=== PATIENT | female | born 1965 | race African-American/Black ===

== ENCOUNTER 2017-08-21 07:15 | Day surgery (SDC) | payer MEDICARE ==
--- NOTE | ~2017-08-21 | OP ---
PATIENT NAME: DOC DELACRUZ MEDICAL RECORD: [id number] :65 LOCATION:[facility] ADMISSION DATE: SURGEON: LINDA ELLIS MD DATE OF OPERATION: 08/21/2017 REFERRING PHYSICIAN: Dr. Strauss in [place] PREOPERATIVE DIAGNOSIS: Other complication of left arm dialysis AV graft with difficult access. POSTOPERATIVE DIAGNOSIS: Other complication of left arm dialysis AV graft with difficult access. OPERATION PERFORMED: Open revision of left arm AV graft without thrombectomy. SURGEON: Linda Ellis MD ANESTHESIA: General with LMA per FOURDRINIER OPERATOR. PREOPERATIVE NOTE: Ms. Delacruz is a 51-year-old female with a left upper arm brachial axillary AV graft. The graft is functioning well, but it is deep and difficult to access. I had advised the patient that she should undergo a revisionary operation to place a new jump graft in a more superficial or immediately subcutaneous location. She has agreed and reports to the hospital as an outpatient for that procedure today. She dialyzes in [place] on Tuesdays, , Saturdays. She is diabetic and her blood sugar was in the 300s. Preoperative she was given IV insulin per anesthesia. DESCRIPTION OF PROCEDURE: Under general anesthesia with an LMA per FOURDRINIER OPERATOR, the patient was placed in supine position. The left arm prepped and draped in sterile manner. I examined her arm with ultrasound and identified the sites for 2 incisions over the venous outflow and close to the arterial anastomosis. The incisions were deepened with electrocautery dissection and the old graft exposed. It was noted to be actually functioning well with good palpable thrills and pulsation. The graft was occluded at the juxta arterial segment and close to the venous outflow with atraumatic vascular clamps. The graft was transected. I chose a new 6 mm diameter straight Acuseal PTFE graft and anastomosed one end-to-end to the arterial juxta anastomotic segment. This was done with running 6-0 Prolene, after which the suture line was sealed with BioGlue and the graft then aspirated, free return of blood with the arterial pulsation noted. It was then flushed with heparinized saline and clamped. I created a new very shallow subcutaneous tunnel, which passed anteriorly and lateral and outside of the old rainbow shaped PTFE graft. It was brought back up into the proximal incision where it was shortened and again flushed with heparinized saline and another end-to-end anastomosis was done with running 6-0 Prolene and the suture lines sealed with BioGlue. The clamps were removed and excellent flow immediately established in the new graft. The wounds were irrigated with gentamicin solution. The patient was given vancomycin as a prophylactic antibiotic preop due to her history of BETA-LACTAM PENICILLIN allergy. The wounds were closed with interrupted inverted 3-0 Vicryl and running intracuticular 4-0 Monocryl and Dermabond glue. They were each dressed with OPERATIVE REPORT [id number] DOC DELACRUZ Maxorb Ag, Tegaderm, and Cavilon skin prep and both wounds were also infiltrated with 0.25% Marcaine without epinephrine prior to closure. The patient was awakened and taken to the recovery room in stable condition where she was noted to have an excellent audible bruit and palpable thrill over her new graft. PLAN: The patient will resume her usual medications and diabetic renal diet. Today, she will be discharged to home to continue her routine dialysis schedule, which means she should present for dialysis tomorrow. The [facility] dialysis unit in [place] will be instructed to follow strict Acuseal protocol for 2 weeks. That involves the nurse wearing a mask and sterile gloves when doing the access, no larger than 17-gauge needles should be used for 2 weeks, and flow during dialysis is to be limited at 400 cc per minute. After 2 weeks, they can resume fully normal technique. She will be discharged to home today and I will make an appointment for her to come back to see me in my office week after next and she is given a prescription for 10 tablets of hydrocodone with acetaminophen 5/325, she can take 1 p.o. q.4 hours p.r.n. pain. Blood loss during the operation was about 5 cc, none was replaced. All sponges, instruments and needles were accounted for. No drain was used and no surgical specimen was submitted for histopathology. TRANSINT:[id number] Voice Confirmation ID: [id number] DOCUMENT ID: [id number] CC: Dr. Suha Strauss LINDA ELLIS MD at 1453 CC: DR. SUHA STRAUSS [id number] DICTATION DATE: 08/21/17 1149 PLASTIC MAKER: 08/21/17 1257 [facility] 08/21/17 [facility] [address] [place] [address]
[2017-08-21] MEDS ORDERED: NEURONTIN 300300 MG PO (07:31)
[2017-08-21] MEDS ORDERED: COREG12.5 MG PO (07:31)
[2017-08-21] MEDS ORDERED: LASIX80 MG PO (07:31)
[2017-08-21] MEDS ORDERED: PROTONIX40 MG PO (07:32)
[2017-08-21 07:33] LABS: BASOPHILS 0.3 % (0-2); EOSINOPHILS 2.9 % (0-7); HEMATOCRIT 36.2 % (36.0-48.0); HEMOGLOBIN 12.2 g/dL (12-16); IMMATURE GRANULOCYTES 0.1 % (0-5); MCH 30.4 pg (26.0-34.0); MCHC 33.7 g/dL (31.0-37.0); MCV 90.3 fL (80.0-100.0); MEAN PLATELET VOLUME 9.3 fL (7.4-10.4); MONOCYTES 7.6 % (2-11); NEUTROPHILS 54.1 % (40-80); PLATELET COUNT 250 10x3/uL (130-400); RBC 4.01 10x6/uL (4.00-5.40); RDW 13.7 % (11.5-14.5); WBC 7.6 10x3/uL (4.8-10.8)
[2017-08-21] MEDS ORDERED: HUMULIN R100 U/ML SC (07:34)
[2017-08-21] MEDS ORDERED: PRILOSEC10 M1 (07:35)
[2017-08-21] MEDS ORDERED: LIPITOR40 MG PO (07:35)
[2017-08-21] MEDS ORDERED: COZAAR100 MG PO (07:36)
[2017-08-21] MEDS ORDERED: NITROQUICK0.4 MG SL (07:37)
[2017-08-21] MEDS ORDERED: FERRIC CITRATE210 MG PO (07:39)
[2017-08-21 07:42] VITALS: BP 144/74; BMI 31.3
[2017-08-21 07:44] LABS: ANION GAP 17.3 mmol/L (8-16); CALCIUM 9.8 mg/dL (8.5-10.1); CARBON DIOXIDE 22.4 mmol/L (21.0-32.0); POTASSIUM - SERUM 4.7 mmol/L (3.5-5.1)
[2017-08-21 07:52] LABS: INR 0.93 (0.85-1.17); PROTIME 12.1 SECONDS (11.6-15.0)
[2017-08-21 07:53] LABS: APTT 25.6 SECONDS (22.8-39.4)
[2017-08-21 08:32] LABS: HCG URINE NEGATIVE (NEGATIVE)
[2017-08-21] MEDS ORDERED: HYDROCODON-ACE1 EAC7 PO (11:30)
== END 2017-08-21 13:20 | disposition home or self-care (01) ==
LOC: D.OPS 07:15
PROVIDERS: Internal Medicine Nephrology
DX: T82.9XXA Unspecified complication of cardiac and vascular prosthetic device, implant and graft, initial encounter (principal); E11.22 Type 2 diabetes mellitus with diabetic chronic kidney disease; I12.0 Hypertensive chronic kidney disease with stage 5 chronic kidney disease or end stage renal disease; N18.6 End stage renal disease; Z99.2 Dependence on renal dialysis; K21.9 Gastro-esophageal reflux disease without esophagitis; Z01.812 Encounter for preprocedural laboratory examination

== ENCOUNTER 2017-09-26 12:06 | Inpatient (IN) | payer MEDICARE ==
[~2017-09-26] VITALS: Ht 162.6 cm; Wt 78.0 kg
--- NOTE | ~2017-09-26 | OP ---
PATIENT NAME: DOC DELACRUZ MEDICAL RECORD: [id number] :65 LOCATION:D.M2 D.2131 ADMISSION DATE:09/26/17 SURGEON: LINDA ELLIS MD DATE OF OPERATION: 10/02/2017 REFERRING PHYSICIANS: 1. Romel De La Cruz MD, [facility] 2. 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 OPERATIONS PERFORMED: Left upper extremity dialysis circuit angiogram with balloon angioplasty of arterial anastomotic stenosis, angioplasty and stenting of axillary vein stenosis about 4 cm proximal to the proximal end of a stent placed earlier this week, also selective left brachial artery catheterization and arteriogram, and also separately insertion of a 19-cm HemoSplit catheter via the right internal jugular vein under fluoroscopy. SURGEON: Linda Ellis MD ANESTHESIA: General per GAMMA FACILITIES OPERATOR. PREOP NOTE: Ms. Delacruz is a very nice 51-year-old -[place] female from [place], who is on chronic hemodialysis. She had dialyzed for sometime with a left upper arm brachial axillary AV graft. It was very difficult to access because it was too deep to be able to palpate and cannulate reliably. I operated her a couple of weeks ago and implanted an Acuseal jump graft using the old graft arterial and venous anastomoses and placed the Acuseal graft in a very superficial location. It was not long after that that the graft thrombosed, and on Thursday last, in the operating room, I performed a fistulogram with AngioJet thrombolysis and angioplasty with initially good results but prompt re-thrombosis. She was returned to the operating room on Thursday of this week and had basically the same operation performed, although there was persistent stenosis within the axillary vein at the venous anastomosis and I did stent that with a Viabahn stent. I found no other pathology and she thrombosed again immediately upon arriving in the recovery room. She is returned to the operating room now on Thursday with plans to do this one more time with more aggressive anticoagulation. She has been seen in consultation by hematology, but there has been no determination of her exact thrombophilic defect. She actually thrombosed her graft during a period of GI illness with nausea, vomiting, diarrhea, and some fever and that may have, perhaps along with dehydration, contributed to her becoming thrombophilic. At any rate, she is back in the OR to give it another try today. Also, she has a Trialysis catheter, which I placed via the right internal jugular vein on Thursday, and I am going to remove it and implant a tunneled dialysis catheter so that, regardless of the outcome as far as her fistula salvage is concerned today, she should be able to go home. Under anesthesia in supine position, the patient was prepped and draped in sterile manner. The right internal jugular Trialysis catheter was removed over a guidewire and the insertion site enlarged as a transverse incision at the base OPERATIVE REPORT [id number] DOC DELACRUZ of the neck there on the right. I passed a dilator peel-away sheath over the wire and then chose an entry site for the new catheter beneath the clavicle. I made a stab incision there and passed the new catheter through a subcutaneous tunnel up to the cervical wound where it was then inserted through the sheath and the peel-away sheath removed. The catheter came to final position deep in the right atrium. It was accessed and aspirated. Free return of blood from each lumen confirmed. It was then flushed with saline and Hep-Lock solution, clamped, and capped. The catheter was sutured to the skin near the entry site with 2-0 Prolene and a standard central venous line dressing applied, which included chlorhexidine-containing disc at the skin site. The cervical incision was closed with interrupted inverted 3-0 Vicryl and Dermabond glue. It was dressed with Maxorb Ag, Tegaderm, and Cavilon skin prep. We then turned attention to the left arm. The graft was accessed with ultrasound guidance and micropuncture technique in 2 directions, antegrade and retrograde. An 8-Yoruba sheath was used distally and directed centrally, and a 6-Yoruba sheath was used proximally and directed towards the arterial anastomosis. I lysed thrombus within the graft with an AngioJet catheter over a 0.035 angled Glidewire, and at the same time, the patient was given 5000 units of heparin systemically. I found a persistent area of tenacious organized thrombus in the axillary vein just proximal to the proximal end of the stent I placed last time. This was not adequately treated with the AngioJet and I did perform angioplasty and dilated the axillary vein stenosis, and on repeat contrast injection, there was elastic recoil and the problem persisted. I subsequently treated this with an overlapping Viabahn stent. Due to inventory, I had to use an 8-mm diameter x 15-cm Viabahn stent. Completion angiography demonstrated new thrombus forming within the stent and within the body of the graft. Additional heparin was given. Initially a dose of extra 2000 units and later another 3000 units of heparin was given during the procedure, which lasted about 2-1/2 hours. The brachial artery was selectively catheterized by passing a guidewire and glide catheter across the arterial anastomosis and advancing proximally into the proximal brachial artery. Contrast injection revealed no evidence of emboli, stenoses, or occlusion within the brachial artery or its branches. There was a narrowing at the arterial anastomosis, which I think was probably tenacious thrombus. This was not satisfactorily removed with an AngioJet catheter and Irina embolectomy catheter and subsequently I dilated the arterial anastomosis with a 6-mm diameter balloon. Repeated contrast injections from the brachial artery catheter demonstrated dramatic improvement there, but still very sluggish flow with residual thrombus or new thrombus forming within the graft. The entire graft was then treated several times with repeated angioplasty balloon inflations to macerate clot, which was aspirated as much as possible and the graft flushed frequently with heparinized saline. Eventually, we got good result. The patient's insertion sites were closed with [id number] 4-0 Prolene as the sheaths were removed. All the puncture sites from today's procedure and the last couple of procedures were dressed with Avitene Ultrafoam, Tegaderm, and Cavilon skin prep. When the patient reached the recovery room, her graft had a very good satisfying multiphasic continuous pulsatile Doppler signal and a low-pitched rumble on auscultation. I am giving the patient her first dose of Eliquis today and I believe that she can be discharged today or tomorrow on Eliquis 2.5 mg b.i.d. if she has insurance coverage to purchase the medication. Hopefully she will as I think this will be much more effective and better for her than trying to get her on OPERATIVE REPORT [id number] DOC DELACRUZ Coumadin and keeping her in the hospital any longer to regulate her anticoagulation. I think that she should go back to her [facility] in [place], where they should continue dialyzing her if possible with her left arm AV graft though using Acuseal protocol for 2 more weeks. At some point after that, if her graft is functioning well without complications, then she should be referred back to [facility] for a followup angiogram and then, if possible, also removal of her tunneled dialysis catheter on the same day. Blood loss during the operation was about 50 cc. None was replaced intraoperatively. All sponges, instruments, and needles were accounted for. No drain was used. TRANSINT:[id number] Voice Confirmation ID: [id number] DOCUMENT ID: [id number] LINDA ELLIS MD at 2012 CC: CONCETTA GIVENS MD [id number] DICTATION DATE: 10/02/17 1415 TOP LIFT AND AUTOMATIC WINDOW REPAIRER: 10/02/17 1546 [facility] 10/03/17 [facility] [address] [place] [address]
--- NOTE | ~2017-09-26 | OP ---
PATIENT NAME: DOC DELACRUZ MEDICAL RECORD: [id number] :65 LOCATION:D.M2 D.2131 ADMISSION DATE:09/26/17 SURGEON: LINDA ELLIS MD DATE OF OPERATION: 09/27/2017 REFERRED BY: Dr. Concetta Givens and Dr. Strauss of [place]. PREOPERATIVE DIAGNOSIS: Acute thrombosis of left upper extremity AV graft revised last about 30 days ago. POSTOPERATIVE DIAGNOSIS: Thrombosed AV graft secondary to approximate 70% venous anastomotic stenosis. OPERATION PERFORMED: Percutaneous fistulogram with ultrasound-guided micropuncture access times 2 and AngioJet mechanical thrombolysis and balloon angioplasty of venous anastomotic stenosis and selective placement of wire and catheter in the proximal brachial artery via the AV graft arterial anastomosis and performance of a selective brachial artery arteriogram. SURGEON: Linda Ellis MD ANESTHESIA: General by LMA per HORSE RACER. PREOPERATIVE NOTE: Ms. Delacruz is a very pleasant 51-year-old -[place] female from [place] who is on dialysis there. Her business planning analyst is Dr. Strauss in [place]. Ms. Delacruz has had an AV graft in her left arm, which was too deep and difficult to access. This was done, I believe, in [place]. I recently revised this about 08/21/2017 and interposed an Acuseal jump graft between the arterial and venous limbs and placed this jump graft in a much more superficial and further lateral position for ease of access. Since that time, the graft has been accessed with Acuseal protocol and the graft has remained patent and the patient has done well. I saw her in my office last on 09/03/2017, at which time she reported there was no difficulty in accessing her graft and that everything was working well. She apparently became ill earlier this week with nausea, vomiting, subjective fever, and diarrhea that has continued through and including today. She dialyzed on Thursday of last week and on that day she says she had a CT scan of the abdomen there in [place] though I do not have any record of the result. She presented for dialysis on and was found to have occlusion of her graft or thrombosis. I do not know exactly what her status was on Thursday and Thursday, but on Thursday she was referred to Dr. Givens and he admitted her to the hospital here Thursday that was yesterday. Her graft is thrombosed and she has no access, so she is to go to the operating room today for hopefully salvage of her AV graft and possibly a dialysis catheter. Under general anesthesia via LMA per HORSE RACER, the patient being fully n.p.o. past midnight, she was given vancomycin as a prophylactic antibiotic due to her history of PENICILLIN allergy and the left arm was prepped and draped in a sterile manner. I accessed the arterial limb of the graft using ultrasound guidance and micropuncture technique. I inserted a 6-Korean introducer sheath directed proximally and then introduced a 0.035 angled Glidewire and over that an AngioJet catheter. I lysed thrombus from the axillary vein through the venous anastomosis and through the body of the graft. The patient was given 5000 units of heparin systemically. Contrast injection demonstrated residual thrombus or stenosis in the venous anastomosis. I saw no other stenoses in the OPERATIVE REPORT [id number] DCO DELACRUZ graft otherwise. I dilated this segment with a 7-mm diameter Reef angioplasty balloon to full effacement. I estimate this stenosis at about 70%. The balloon reached full effacement at 10 atmospheres and was held fully inflated for 30 seconds. Repeat contrast injection revealed resolution of the stenosis and good flow of contrast into the axillary vein. A second micropuncture was done towards the venous end of the graft and another 6-Korean introducer placed. This was directed peripherally and thrombus within the body of the graft and arterial anastomosis was removed with the AngioJet, but note pulsatile arterial inflow had already spontaneously returned at that point. I passed the guidewire distally and across the arterial anastomosis and proximally up to the proximal brachial artery and then over that placed a glide catheter and performed a selective brachial artery arteriogram. This revealed no evidence of any significant stenoses or aneurysms. No evidence of emboli and the arterial anastomosis to the graft appeared to be wide open. There was good flow in the graft at that point. At this point, we terminated the procedure. I did not reverse her heparin. The hardware was removed and hemostasis obtained at the puncture sites with [id number] 4-0 Prolene sutures and a brief period of direct pressure. Recall this is an Acuseal graft, at least where it was accessed. Doppler examination revealed good flow in the graft, although the Doppler did not penetrate many sites along the course of the graft. This is being due to it being an Acuseal and also to its relatively short period of time for tissue ingrowth to occur. Dressings of Maxorb and Tegaderm with Cavilon skin prep were applied and the patient awakened and taken to the Recovery Room. The patient had not been hypotensive during the procedure. Blood loss was estimated about 5 cc. When the patient reached the recovery room, it was noted that there was no bruit audible over the graft and on my Doppler examination, there was no Doppler pulsatile continuous flow in the graft. At this point, I elected to go ahead and insert a temporary dialysis catheter. There in the recovery room in bed with TIVA and monitoring per HORSE RACER, the patient's right neck was prepped and draped in a sterile manner. Ultrasound was used to locate the right internal jugular vein. A small incision was made under local anesthesia there at the base of the neck and with continuous ultrasound guidance, a needle and guidewire were inserted into the right internal jugular vein. Dilators were passed over the wire and lastly, a 15 cm long Trialysis acute dialysis catheter was inserted. Blood returned from all 3 lumens. They were then flushed with saline and heparin locked, clamped, and capped. The catheter was sutured in place with a 2-0 Prolene and a sterile dressing applied. A chest x-ray was obtained there in the recovery room, which revealed satisfactory positioning of the catheter without apparent complication. I have communicated with Ms. Nilam Morales, nurse practitioner for nephrology home paraprofessional this weekend and the patient will be going to dialysis today. I think she probably will need to go on to dialysis tomorrow and then if possible, assuming her other problems are not taking precedence, then she can be returned to the OR on Thursday to have this procedure basically repeated with consideration of stenting the venous anastomosis if no other lesions or reasons for graft failure are found. TRANSINT:[id number] Voice Confirmation ID: [id number] DOCUMENT ID: [id number] OPERATIVE REPORT [id number] DOC DELACRUZ JAMES MD at 5142 CC: CONCETTA GIVENS MD and DR SUHA STRAUSS [phone] DICTATION DATE: 09/27/17 1137 COMMERCIAL LENDING VICE PRESIDENT: 09/27/17 1408 ADM IN [place] [id number] [place] [address]
--- NOTE | ~2017-09-26 | OP ---
PATIENT NAME: DOC DELACRUZ MEDICAL RECORD: [id number] :65 LOCATION:D.M2 D.2131 ADMISSION DATE:09/26/17 SURGEON: LINDA ELLIS MD DATE OF OPERATION: 09/29/2017 REFERRED BY: Dr. Concetta Givens and Dr. De La Cruz of [place]. 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 SURGEON: Linda Ellis MD ANESTHESIA: General by DIRECTOR OF CARDIOPULMONARY SERVICES with LMA. PREOPERATIVE NOTE: Ms. Delacruz is a very nice 51-year-old -[place] female from [place]. She has end-stage renal disease and is on chronic hemodialysis there. She had had very difficult to access left arm brachial axillary AV graft, which I recently revised putting in a new jump graft of Acuseal and placing it more lateral in the arm and a very superficially positioned. It is much easier to access now, but it has thrombosed last week and she was brought to the hospital on Thursday and on Thursday, I did a fistulogram with mechanical thrombolysis and angioplasty of the venous anastomotic stenosis and she immediately clotted off the access in the recovery room. A temporary catheter was placed for her to have dialysis on Thursday and then again on Thursday. She is brought back to the operating room on Thursday to try to salvage this AV graft. DESCRIPTION OF PROCEDURE: Under anesthesia, she is prepped and draped in a sterile manner. The graft was accessed using ultrasound guidance and an 8-Portuguese sheath was placed distally, directed proximally anticipating insertion of a stent at the venous anastomosis and later a 6-Portuguese sheath was inserted proximally, directed distally for clearance of the arterial limb. The patient was given 5000 units of heparin and later an additional 2000 units were given intraoperatively. I passed a guidewire proximally and across a recurrent stenosis at the venous outflow and used an AngioJet catheter to lyse thrombus. I then used 8-mm angioplasty balloon to dilate the venous stenosis and venous anastomosis. This stenosis was all in the confluence and was about a 95% near total occlusion. The result after balloon angioplasty was unsatisfactory and this area was subsequently stented with an 8 x 10 cm Viabahn stent graft and completion angiography revealed a satisfactory result in that region. I passed a guidewire and glide catheter then into the brachial artery through the brachial artery anastomosis and performed a selective brachial artery arteriogram, which demonstrated no evidence of stenosis or thrombus or embolus within the brachial artery above or below the arterial anastomosis or in the radial or ulnar arteries in the forearm or hand and I noted that the palmar arch was intact. I then used a Irina embolectomy catheter to remove thrombus from the arterial anastomosis, but had continuing problems with recurrent thrombosis of the graft. She was given at that time the additional heparin and I used the AngioJet and Irina catheter and a 6-mm diameter angioplasty balloon to perform mechanical thrombolysis and the maceration of the clot and eventually I was able OPERATIVE REPORT [id number] DOC DELACRUZ to restore satisfactory flow through the graft. The hardware was removed and the puncture sites closed with [id number] 4-0 Prolene and dressings of Ultrafoam and Tegaderm with Cavilon skin prep were applied. In the recovery room, the patient's bruit and thrill were lost and restored only after a mechanical massage of the graft. Doppler examination demonstrated a good continuous pulsatile flow in the graft at that point. I then gave the patient an additional 2000 units of heparin bolus in the recovery room and began a drip at 1000 units per hour. Blood loss during the procedure was about 50 cc and was unreplaced. All sponges, instruments and needles were accounted for. No drain was used and no surgical specimen was submitted for histopathology. PLAN: I did not remove the patient's Trialysis catheter today and so it can be used for venous access for her heparin drip and can be used as a backup for dialysis access if the graft in her arm fails. I believe that she should be on long-term anticoagulation, probably with Coumadin or Eliquis, though I think while she is here, she should have a hematology consultation and workup for her thrombophilia. There may be a specific recommendation from hematology as to what type of long-term anticoagulation would be best. TRANSINT:[id number] Voice Confirmation ID: [id number] DOCUMENT ID: [id number] LINDA ELLIS MD at 1727 CC: CONCETTA GIVENS MD [id number] DICTATION DATE: 09/29/17 1116 VAT PACKER: 09/29/17 1248 ADM IN [facility] [address] [id number]
[~2017-09-26 12:06] MED LIST: COREG12.5 MG PO; COZAAR100 MG PO; FERRIC CITRATE210 MG PO; HUMULIN R100 U/ML SC; HYDROCODON-ACE1 EAC7 PO; LASIX80 MG PO; LIPITOR40 MG PO; NEURONTIN 300300 MG PO; NITROQUICK0.4 MG SL; PRILOSEC10 M1; PROTONIX40 MG PO
[2017-09-26] MEDS ORDERED: FER-IN-SOL DROP50 ML PO (15:01)
[2017-09-26 15:06] LABS: BASOPHILS 0.3 % (0-2); EOSINOPHILS 0.8 % (0-7); HEMATOCRIT 31.6 % (36.0-48.0); HEMOGLOBIN 10.7 g/dL (12-16); IMMATURE GRANULOCYTES 0.1 % (0-5); MCH 30.1 pg (26.0-34.0); MCHC 33.9 g/dL (31.0-37.0); MEAN PLATELET VOLUME 9.6 fL (7.4-10.4); MONOCYTES 13.1 % (2-11); NEUTROPHILS 57.7 % (40-80); PLATELET COUNT 226 10x3/uL (130-400); RBC 3.55 10x6/uL (4.00-5.40); WBC 7.9 10x3/uL (4.8-10.8)
[2017-09-26] MEDS ORDERED: ISOSORBIDE DINI20 MG PO (15:14)
[2017-09-26] MEDS ORDERED: BAYER CHEWABLE81 MG PO (15:15)
[2017-09-26] MEDS ORDERED: HYDRALAZINE HCL10 MG PO (15:17)
[2017-09-26] MEDS ORDERED: CILOSTAZOL100 MG PO (15:18)
[2017-09-26 15:19] LABS: APTT 27.1 SECONDS (22.8-39.4); INR 1.04 (0.85-1.17); PROTIME 13.2 SECONDS (11.6-15.0)
[2017-09-26 16:04] LABS: ALBUMIN 3.9 g/dL (3.4-5.0); ANION GAP 25.9 mmol/L (8-16); BILIRUBIN - TOTAL 0.3 mg/dL (0.2-1.3); CALCIUM 8.9 mg/dL (8.5-10.1); CARBON DIOXIDE 15.6 mmol/L (21.0-32.0); CREATININE - SERUM 13.2 mg/dL (0.6-1.3); MAGNESIUM - SERUM 1.8 mg/dL (1.8-2.4); POTASSIUM - SERUM 4.5 mmol/L (3.5-5.1); PROTEIN - SERUM 7.8 g/dL (6.4-8.2)
[2017-09-26 19:18] VITALS: BMI 24.0
[2017-09-27 02:14] VITALS: BP 104/55
[2017-09-27 05:36] VITALS: BP 112/59
[2017-09-27 05:47] LABS: BASOPHILS 0.2 % (0-2); EOSINOPHILS 0.8 % (0-7); HEMATOCRIT 29.5 % (36.0-48.0); IMMATURE GRANULOCYTES 0.2 % (0-5); LYMPHOCYTES 40.7 % (15-50); MCH 30.1 pg (26.0-34.0); MCHC 33.9 g/dL (31.0-37.0); MCV 88.9 fL (80.0-100.0); MEAN PLATELET VOLUME 9.5 fL (7.4-10.4); MONOCYTES 12.4 % (2-11); NEUTROPHILS 45.7 % (40-80); PLATELET COUNT 234 10x3/uL (130-400); RBC 3.32 10x6/uL (4.00-5.40); RDW 13.1 % (11.5-14.5); WBC 8.3 10x3/uL (4.8-10.8)
[2017-09-27 05:51] LABS: ANION GAP 24.7 mmol/L (8-16); CALCIUM 8.6 mg/dL (8.5-10.1); CARBON DIOXIDE 15.6 mmol/L (21.0-32.0); CREATININE - SERUM 13.1 mg/dL (0.6-1.3); POTASSIUM - SERUM 4.3 mmol/L (3.5-5.1)
[2017-09-27 07:57] VITALS: BP 137/73
[2017-09-27 10:56] VITALS: BP 117/66
[2017-09-27 11:23] VITALS: BP 117/66
[2017-09-27 11:44] LABS: AMYLASE - SERUM 106 U/L (25-115); LIPASE 607 U/L (73-393)
[2017-09-27 21:12] VITALS: BP 141/67
[2017-09-28 01:18] VITALS: BP 100/53
[2017-09-28 05:50] VITALS: BP 110/51
[2017-09-28 07:40] VITALS: BP 103/50
[2017-09-28 14:12] VITALS: BMI 30.9
[2017-09-28 14:57] VITALS: BP 105/64
[2017-09-28 19:00] VITALS: BP 141/72
[2017-09-29] VITALS: BP 87/38
[2017-09-29 04:00] VITALS: BP 106/67
[2017-09-29 05:50] LABS: BASOPHILS 0.3 % (0-2); EOSINOPHILS 1.7 % (0-7); HEMATOCRIT 30.2 % (36.0-48.0); HEMOGLOBIN 10.3 g/dL (12-16); IMMATURE GRANULOCYTES 0.3 % (0-5); LYMPHOCYTES 45.8 % (15-50); MCH 30.6 pg (26.0-34.0); MCHC 34.1 g/dL (31.0-37.0); MCV 89.6 fL (80.0-100.0); MEAN PLATELET VOLUME 9.3 fL (7.4-10.4); MONOCYTES 15.7 % (2-11); NEUTROPHILS 36.2 % (40-80); PLATELET COUNT 246 10x3/uL (130-400); RBC 3.37 10x6/uL (4.00-5.40); WBC 7.8 10x3/uL (4.8-10.8)
[2017-09-29 06:10] LABS: INR 1.1 (0.85-1.17); PROTIME 13.8 SECONDS (11.6-15.0)
[2017-09-29 06:20] LABS: CALCIUM 9.3 mg/dL (8.5-10.1); PHOSPHOROUS 6.6 mg/dL (2.5-4.9)
[2017-09-29 06:27] LABS: CARBON DIOXIDE 24.5 mmol/L (21.0-32.0); CREATININE - SERUM 7.8 mg/dL (0.6-1.3); POTASSIUM - SERUM 3.5 mmol/L (3.5-5.1)
[2017-09-29 08:04] VITALS: BP 140/76
[2017-09-29 11:17] VITALS: BP 151/79
[2017-09-29 13:45] LABS: BASOPHILS 0.3 % (0-2); EOSINOPHILS 2.8 % (0-7); HEMATOCRIT 28.1 % (36.0-48.0); HEMOGLOBIN 9.9 g/dL (12-16); IMMATURE GRANULOCYTES 0.8 % (0-5); LYMPHOCYTES 40.8 % (15-50); MCH 30.9 pg (26.0-34.0); MCHC 35.2 g/dL (31.0-37.0); MCV 87.8 fL (80.0-100.0); MEAN PLATELET VOLUME 9.4 fL (7.4-10.4); MONOCYTES 13.5 % (2-11); NEUTROPHILS 41.8 % (40-80); PLATELET COUNT 222 10x3/uL (130-400); RDW 12.9 % (11.5-14.5); WBC 8.7 10x3/uL (4.8-10.8)
[2017-09-29 15:06] VITALS: BP 154/90
[2017-09-29 19:23] VITALS: Ht 162.6 cm; Wt 78.0 kg
[2017-09-29 20:00] VITALS: BP 153/72
[2017-09-30 04:00] VITALS: BP 119/66
[2017-09-30 06:08] LABS: BASOPHILS 0.1 % (0-2); EOSINOPHILS 2.4 % (0-7); HEMATOCRIT 27.7 % (36.0-48.0); HEMOGLOBIN 9.4 g/dL (12-16); IMMATURE GRANULOCYTES 0.3 % (0-5); LYMPHOCYTES 32.5 % (15-50); MCH 30.3 pg (26.0-34.0); MCHC 33.9 g/dL (31.0-37.0); MCV 89.4 fL (80.0-100.0); MEAN PLATELET VOLUME 9.3 fL (7.4-10.4); MONOCYTES 13.1 % (2-11); NEUTROPHILS 51.6 % (40-80); RDW 12.9 % (11.5-14.5); WBC 10.2 10x3/uL (4.8-10.8)
[2017-09-30 06:12] LABS: PLATELET COUNT 273 10x3/uL (130-400)
[2017-09-30 06:24] LABS: ANION GAP 19.6 mmol/L (8-16); CALCIUM 9.8 mg/dL (8.5-10.1); CREATININE - SERUM 9.7 mg/dL (0.6-1.3); POTASSIUM - SERUM 3.6 mmol/L (3.5-5.1)
[2017-09-30 06:27] LABS: PHOSPHOROUS 8.3 mg/dL (2.5-4.9)
[2017-09-30 08:57] VITALS: BP 112/60
[2017-09-30 12:16] VITALS: BP 129/65
[2017-09-30 16:10] VITALS: BP 106/50
[2017-09-30 20:00] VITALS: BP 123/57
[2017-10-01 04:00] VITALS: BP 114/67
[2017-10-01 05:15] LABS: BASOPHILS 0.1 % (0-2); EOSINOPHILS 2.2 % (0-7); HEMATOCRIT 24.9 % (36.0-48.0); HEMOGLOBIN 8.6 g/dL (12-16); IMMATURE GRANULOCYTES 0.5 % (0-5); MCH 30.4 pg (26.0-34.0); MCHC 34.5 g/dL (31.0-37.0); MEAN PLATELET VOLUME 9.3 fL (7.4-10.4); NEUTROPHILS 52.2 % (40-80); PLATELET COUNT 284 10x3/uL (130-400); RBC 2.83 10x6/uL (4.00-5.40); RDW 12.9 % (11.5-14.5); WBC 11.6 10x3/uL (4.8-10.8)
[2017-10-01 05:31] LABS: CALCIUM 9.1 mg/dL (8.5-10.1); CARBON DIOXIDE 21.8 mmol/L (21.0-32.0); CREATININE - SERUM 12.1 mg/dL (0.6-1.3); PHOSPHOROUS 8.9 mg/dL (2.5-4.9); POTASSIUM - SERUM 3.8 mmol/L (3.5-5.1)
[2017-10-01 09:17] LABS: FOLATE (FOLIC ACID) - SERUM 7.9 ng/mL (>3.0)
[2017-10-01 09:35] VITALS: BP 127/58
[2017-10-01 13:19] LABS: IMMUNOGLOBULIN G 873 mg/dL (700-1600); IMMUNOGLOBULIN M 104 mg/dL (26-217)
[2017-10-01 14:27] LABS: ACLA - IGG AB <9 GPL U/mL (0-14); ACLA - IGM AB 13 MPL U/mL (0-12)
[2017-10-01 18:42] VITALS: BP 111/57
[2017-10-01 20:00] VITALS: BP 103/47
[2017-10-02 04:00] VITALS: BP 156/78
[2017-10-02 05:19] LABS: BASOPHILS 0.1 % (0-2); EOSINOPHILS 2.3 % (0-7); IMMATURE GRANULOCYTES 0.6 % (0-5); LYMPHOCYTES 33.2 % (15-50); MCH 30.2 pg (26.0-34.0); MCHC 33.9 g/dL (31.0-37.0); MCV 89.1 fL (80.0-100.0); NEUTROPHILS 49.8 % (40-80); PLATELET COUNT 260 10x3/uL (130-400); WBC 9.2 10x3/uL (4.8-10.8)
[2017-10-02 05:20] LABS: HEMOGLOBIN 10.5 g/dL (12-16); RBC 3.48 10x6/uL (4.00-5.40)
[2017-10-02 05:27] LABS: INR 1.03 (0.85-1.17); PROTIME 13.1 SECONDS (11.6-15.0)
[2017-10-02 05:28] LABS: APTT 58.4 SECONDS (22.8-39.4)
[2017-10-02 05:30] LABS: ANION GAP 18.4 mmol/L (8-16); CALCIUM 9.2 mg/dL (8.5-10.1); CARBON DIOXIDE 26.2 mmol/L (21.0-32.0); PHOSPHOROUS 6.9 mg/dL (2.5-4.9); POTASSIUM - SERUM 3.6 mmol/L (3.5-5.1)
[2017-10-02 07:26] LABS: SPE - ALBUMIN 3.6 g/dL (2.9-4.4); SPE - ALPHA-1 GLOBULIN 0.3 g/dL (0.0-0.4); SPE - ALPHA-2 GLOBULIN 1.3 g/dL (0.4-1.0); SPE - M-SPIKE Not Observed g/dL (Not Observed); SPE - TOTAL PROTEIN 7.2 g/dL (6.0-8.5)
[2017-10-02 08:41] LABS: APPEARANCE SLT CLOUDY (CLEAR); BILIRUBIN NEGATIVE (NEGATIVE); COLOR YELLOW (YELLOW); GLUCOSE 50 mg/dL (NEGATIVE); KETONE NEGATIVE (NEGATIVE); NITRITE NEGATIVE (NEGATIVE); PROTEIN 3+ mg/dL (NEGATIVE); UROBILINOGEN NORMAL (NORMAL)
[2017-10-02 08:42] LABS: AMORPHOUS SEDIMENT <1+ /lpf (NONE SEEN); BACTERIA MODERATE /hpf (NONE SEEN); EPITHELIAL CELLS 0-5 /hpf (0-5); GRANULAR CAST 0-5 /lpf (NONE SEEN); HYALINE CAST RARE /lpf (NONE SEEN); MUCUS <1+ /lpf (NONE SEEN); RED CELLS - URINE RARE /hpf (0-5)
[2017-10-02 10:22] LABS: HEPATITIS C ANTIBODY <0.1 (0.0-0.9)
[2017-10-02 12:15] VITALS: BP 146/72
[2017-10-02 15:28] LABS: METHYLMALONIC ACID 372 nmol/L (0-378)
[2017-10-02 16:57] VITALS: BP 121/70
[2017-10-02 21:06] VITALS: BP 112/52
[2017-10-03 01:14] VITALS: BP 128/56
[2017-10-03 05:05] VITALS: BP 113/53
[2017-10-03 06:41] LABS: BASOPHILS 0.2 % (0-2); HEMATOCRIT 25.2 % (36.0-48.0); IMMATURE GRANULOCYTES 0.6 % (0-5); LYMPHOCYTES 29.6 % (15-50); MCH 29.5 pg (26.0-34.0); MCHC 32.9 g/dL (31.0-37.0); MCV 89.7 fL (80.0-100.0); MEAN PLATELET VOLUME 9.1 fL (7.4-10.4); MONOCYTES 11.4 % (2-11); NEUTROPHILS 56.2 % (40-80); PLATELET COUNT 274 10x3/uL (130-400); RBC 2.81 10x6/uL (4.00-5.40)
[2017-10-03 06:52] LABS: HEMOGLOBIN 8.3 g/dL (12-16); WBC 12.4 10x3/uL (4.8-10.8)
[2017-10-03 07:03] LABS: ANION GAP 20.5 mmol/L (8-16); CALCIUM 9.3 mg/dL (8.5-10.1); CARBON DIOXIDE 22.2 mmol/L (21.0-32.0); CREATININE - SERUM 10.9 mg/dL (0.6-1.3); PHOSPHOROUS 8.3 mg/dL (2.5-4.9); POTASSIUM - SERUM 3.7 mmol/L (3.5-5.1)
[2017-10-03 08:27] VITALS: BP 95/51
[2017-10-03] MEDS ORDERED: ELIQUIS5 MG PO (10:15)
[2017-10-05 19:11] LABS: FACTOR II DNA ANALYSIS Negative (())
== END 2017-10-03 15:14 | disposition home or self-care (01) | DRG 252 ==
LOC: D.M2 12:06
PROVIDERS: Internal Medicine Hematology & Oncology; Internal Medicine Nephrology; Surgery
PROC: 03C83ZZ Extirpation of Matter from Left Brachial Artery, Percutaneous Approach (ICD-10-PCS; 2017-09-27)
PROC: 03783ZZ Dilation of Left Brachial Artery, Percutaneous Approach (ICD-10-PCS; 2017-09-27)
PROC: 5A1D70Z Performance of Urinary Filtration, Intermittent, Less than 6 Hours Per Day (ICD-10-PCS; 2017-09-27)
PROC: B51W1ZZ Fluoroscopy of Dialysis Shunt/Fistula using Low Osmolar Contrast (ICD-10-PCS; principal; 2017-09-27 09:12)
PROC: 03763DZ Dilation of Left Axillary Artery with Intraluminal Device, Percutaneous Approach (ICD-10-PCS; 2017-09-29)
PROC: B51W1ZZ Fluoroscopy of Dialysis Shunt/Fistula using Low Osmolar Contrast (ICD-10-PCS; 2017-09-29)
PROC: B31J1ZZ Fluoroscopy of Left Upper Extremity Arteries using Low Osmolar Contrast (ICD-10-PCS; 2017-09-29)
PROC: 03783ZZ Dilation of Left Brachial Artery, Percutaneous Approach (ICD-10-PCS; 2017-10-02)
PROC: 05780DZ Dilation of Left Axillary Vein with Intraluminal Device, Open Approach (ICD-10-PCS; 2017-10-02)
PROC: 02H633Z Insertion of Infusion Device into Right Atrium, Percutaneous Approach (ICD-10-PCS; 2017-10-02)
PROC: B2141ZZ Fluoroscopy of Right Heart using Low Osmolar Contrast (ICD-10-PCS; 2017-10-02)
DX: T82.868A Thrombosis due to vascular prosthetic devices, implants and grafts, initial encounter (principal); N18.6 End stage renal disease; I12.0 Hypertensive chronic kidney disease with stage 5 chronic kidney disease or end stage renal disease; D68.59 Other primary thrombophilia; Y83.8 Other surgical procedures as the cause of abnormal reaction of the patient, or of later complication, without mention of misadventure at the time of the procedure; E11.22 Type 2 diabetes mellitus with diabetic chronic kidney disease; Z99.2 Dependence on renal dialysis

== ENCOUNTER 2018-05-20 11:58 | Inpatient (IN) | payer MEDICARE ==
[~2018-05-20] VITALS: Ht 162.6 cm; Wt 81.6 kg
--- NOTE | ~2018-05-20 | MORECARE ---
CASE MANAGEMENT DISCHARGE SUMMARY PATIENT: DOC LOYD UNIT: [id number] ADM DATE: 05/20/18 AGE: 52 : 65 SEX: F ROOM/BED: D.1202 AUTHOR: ARLINEDOC PHYSICIAN: REFERRING PHYSICIAN: CONCETTA GIVENS MD DATE OF SERVICE: 05/24/18 Discharge Plan Patient Name: DOC LOYD Facility: [facility]:[place] : 1965 Planned Disposition: Home Anticipated Discharge Date: Discharge Date: 05/23/2018 Expected LOS: Initial Reviewer: [email or web address] Initial Review Date: 05/20/2018 Generated: 05/24/18 8:01 pm Comments DCP- Discharge Planning Updated by [email or web address]: Jazzmine Moore on 05/20/18 8:[address] Patient Name: DOC LOYD Admission Status: Elective Accout number: [id number] Admission Date: 05-20-2018 : 1965 Admission Diagnosis: Attending: Concetta Givens Current LOS: 1 Anticipated DC Date: Planned Disposition: Home Primary Insurance: MEDICARE A & B Discharge Planning Comments: CM met with patient at bedside after obtaining verbal consent. Patient states she plans on returning home after discharge. Patient states she will have family transport him home via private vehicle. Patient has dialysis in [facility] @ 0500. Patient denies any discharge needs at this time. CM will continue to follow and assist as needed for discharge planning / needs. Telegraph Office Manager: Jazzmine Moore DCPIA - Discharge Planning Initial Assessment Updated by [email or web address]: Jazzmine Moore on 05/20/18 9:46 pm * Is the patient Alert and Oriented? Yes * How many steps to enter\exit or inside your home? * PCP NATHAN HUANG * Pharmacy [facility] * Preadmission Environment Home with Family * ADLs Independent * Equipment None * List name and contact numbers for known caregivers / representatives who currently or will assist patient after discharge: WINDY EDMONDSON MOTHER [phone] * Verbal permission to speak to the caregivers and representatives has been obtained from the patient. Yes * Community resources currently utilized None * Additional services required to return to the preadmission environment? No * Can the patient safely return to the preadmission environment? Yes * Has this patient been hospitalized within the prior 30 days at any hospital? No Last DP export: 05/20/18 8:52 Patient Name: DOC LOYD Page 40873 at 1901 All edits/amendments must be made on the electronic document DICTATION DATE: 05/24/181900 MESMERIST: TIFFANIE 05/24/181900 RPT#: [id number] DC DATE:05/23/18 STATUS: DIS IN [facility] [address] [place] [address] END OF REPORT
--- NOTE | ~2018-05-20 | MORECARE ---
CASE MANAGEMENT DISCHARGE SUMMARY PATIENT: DOC LOYD UNIT: [id number] ADM DATE: 05/20/18 AGE: 52 : 65 SEX: F ROOM/BED: D.1202 AUTHOR: SAMANTHA NUNN PHYSICIAN: REFERRING PHYSICIAN: CONCETTA HAZEL MD DATE OF SERVICE: 05/20/18 Discharge Plan Patient Name: DOC LOYD [facility] [facility] 1965 Planned Disposition: Home Anticipated Discharge Date: Discharge Date: Expected LOS: Initial Reviewer: [email or web address] Initial Review Date: 05/20/2018 Generated: 05/20/18 10:46 pm Patient Name: DOC LOYD Page 65776 at 2146 All edits/amendments must be made on the electronic document DICTATION DATE: 05/20/182144 LOAD MIXER: TIFFANIE 05/20/182144 RPT#: [id number] [place] DATE: STATUS: ADM IN [facility] [address] [place] [address] END OF REPORT
--- NOTE | ~2018-05-20 | MORECARE ---
CASE MANAGEMENT DISCHARGE SUMMARY PATIENT: DOC LOYD UNIT: [id number] ADM DATE: 05/20/18 AGE: 52 : 65 SEX: F ROOM/BED: D.1202 AUTHOR: ARLINE,DOC PHYSICIAN: REFERRING PHYSICIAN: CONCETTA GIVENS MD DATE OF SERVICE: 05/20/18 Discharge Plan Patient Name: DOC LOYD Facility: [facility]:[place] : 1965 Planned Disposition: Home Anticipated Discharge Date: Discharge Date: Expected LOS: Initial Reviewer: [email or web address] Initial Review Date: 05/20/2018 Generated: 05/20/18 10:52 pm Comments DCP- Discharge Planning Updated by [email or web address]: Jazzmine Moore on 05/20/18 8:[address] Patient Name: DOC LOYD Admission Status: Elective Accout number: [id number] Admission Date: 05-20-2018 : 1965 Admission Diagnosis: Attending: Concetta Givens Current LOS: 1 Anticipated DC Date: Planned Disposition: Home Primary Insurance: MEDICARE A & B Discharge Planning Comments: CM met with patient at bedside after obtaining verbal consent. Patient states she plans on returning home after discharge. Patient states she will have family transport him home via private vehicle. Patient has dialysis in [place] [facility] @ 0500. Patient denies any discharge needs at this time. CM will continue to follow and assist as needed for discharge planning / needs. Group Billing Coordinator: Jazzmine Moore DCPIA - Discharge Planning Initial Assessment Updated by [email or web address]: Jazzmine Moore on 05/20/18 9:46 pm * Is the patient Alert and Oriented? Yes * How many steps to enter\exit or inside your home? * PCP NATHAN HUANG * Pharmacy [facility] * Preadmission Environment Home with Family * ADLs Independent * Equipment None * List name and contact numbers for known caregivers / representatives who currently or will assist patient after discharge: WINDY EDMONDSON MOTHER [phone] * Verbal permission to speak to the caregivers and representatives has been obtained from the patient. Yes * Community resources currently utilized None * Additional services required to return to the preadmission environment? No * Can the patient safely return to the preadmission environment? Yes * Has this patient been hospitalized within the prior 30 days at any hospital? No Last DP export: 05/20/18 8:46 Patient Name: DOC LOYD Page 73478 at 0107 All edits/amendments must be made on the electronic document DICTATION DATE: 05/20/182151 INTERIOR DECORATOR PAINTING: TIFFANIE 05/20/182151 RPT#: [id number] DC DATE: STATUS: ADM IN [facility] [address] [place] [address] END OF REPORT
[~2018-05-20 11:58] MED LIST changes: +BAYER CHEWABLE81 MG PO; +CILOSTAZOL100 MG PO; +ELIQUIS5 MG PO; +FER-IN-SOL DROP50 ML PO; +HYDRALAZINE HCL10 MG PO; +ISOSORBIDE DINI20 MG PO
[2018-05-20 14:26] LABS: BASOPHILS 0.1 % (0-2); EOSINOPHILS 0.1 % (0-7); HEMATOCRIT 28.4 % (36.0-48.0); HEMOGLOBIN 9.5 g/dL (12-16); IMMATURE GRANULOCYTES 0.3 % (0-5); LYMPHOCYTES 22.5 % (15-50); MCH 28.1 pg (26.0-34.0); MCHC 33.5 g/dL (31.0-37.0); MEAN PLATELET VOLUME 9.2 fL (7.4-10.4); MONOCYTES 8.8 % (2-11); NEUTROPHILS 68.2 % (40-80); PLATELET COUNT 309 10x3/uL (130-400); RBC 3.38 10x6/uL (4.00-5.40); WBC 15.2 10x3/uL (4.8-10.8)
[2018-05-20 14:42] LABS: CALCIUM 8.5 mg/dL (8.5-10.1); CARBON DIOXIDE 22.9 mmol/L (21.0-32.0); CREATININE - SERUM 6.4 mg/dL (0.6-1.3); POTASSIUM - SERUM 3.9 mmol/L (3.5-5.1)
[2018-05-20 15:10] VITALS: BP 146/76; BMI 30.9
[2018-05-20 15:57] VITALS: BP 132/69
[2018-05-20 20:00] VITALS: BP 124/64
[2018-05-21] VITALS (7 sets, daily range): BP systolic 108–132; BP diastolic 62–73; Ht 162.6 cm; Wt 81.6 kg
[2018-05-21 06:45] LABS: BASOPHILS 0.2 % (0-2); HEMATOCRIT 30.2 % (36.0-48.0); HEMOGLOBIN 9.7 g/dL (12-16); IMMATURE GRANULOCYTES 0.1 % (0-5); LYMPHOCYTES 39.3 % (15-50); MCH 27.6 pg (26.0-34.0); MCHC 32.1 g/dL (31.0-37.0); MCV 85.8 fL (80.0-100.0); MEAN PLATELET VOLUME 9.3 fL (7.4-10.4); MONOCYTES 6.8 % (2-11); NEUTROPHILS 52.6 % (40-80); PLATELET COUNT 304 10x3/uL (130-400); RBC 3.52 10x6/uL (4.00-5.40); RDW 14.4 % (11.5-14.5); WBC 11.6 10x3/uL (4.8-10.8)
[2018-05-21 06:56] LABS: ANION GAP 16.5 mmol/L (8-16); CALCIUM 8.1 mg/dL (8.5-10.1); CARBON DIOXIDE 24.6 mmol/L (21.0-32.0); CREATININE - SERUM 7.2 mg/dL (0.6-1.3); POTASSIUM - SERUM 4.1 mmol/L (3.5-5.1)
[2018-05-21 09:55] LABS: INR 0.98 (0.85-1.17); PROTIME 12.5 SECONDS (11.6-15.0)
[2018-05-22 04:00] VITALS: BP 117/72
[2018-05-22 07:37] LABS: BASOPHILS 0.2 % (0-2); EOSINOPHILS 2.1 % (0-7); HEMATOCRIT 32.2 % (36.0-48.0); HEMOGLOBIN 10.4 g/dL (12-16); IMMATURE GRANULOCYTES 0.2 % (0-5); LYMPHOCYTES 34.2 % (15-50); MCH 27.7 pg (26.0-34.0); MCHC 32.3 g/dL (31.0-37.0); MCV 85.6 fL (80.0-100.0); MONOCYTES 7.1 % (2-11); NEUTROPHILS 56.2 % (40-80); PLATELET COUNT 301 10x3/uL (130-400); RBC 3.76 10x6/uL (4.00-5.40); RDW 14.2 % (11.5-14.5); WBC 9.3 10x3/uL (4.8-10.8)
[2018-05-22 08:07] LABS: ANION GAP 16.8 mmol/L (8-16); CALCIUM 8.4 mg/dL (8.5-10.1); CARBON DIOXIDE 23.5 mmol/L (21.0-32.0); CREATININE - SERUM 6.8 mg/dL (0.6-1.3); PHOSPHOROUS 4.8 mg/dL (2.5-4.9); POTASSIUM - SERUM 4.3 mmol/L (3.5-5.1)
[2018-05-22 08:18] VITALS: BP 145/80
[2018-05-22 11:46] VITALS: BP 150/89
[2018-05-22 19:55] VITALS: BP 138/77
[2018-05-22 23:39] VITALS: BP 117/72
[2018-05-23 04:00] VITALS: BP 140/78
[2018-05-23 07:23] LABS: BASOPHILS 0.2 % (0-2); EOSINOPHILS 0.2 % (0-7); HEMATOCRIT 30.3 % (36.0-48.0); IMMATURE GRANULOCYTES 0.2 % (0-5); MCH 27.9 pg (26.0-34.0); MCV 84.4 fL (80.0-100.0); MEAN PLATELET VOLUME 9.2 fL (7.4-10.4); MONOCYTES 8.3 % (2-11); NEUTROPHILS 68.1 % (40-80); PLATELET COUNT 257 10x3/uL (130-400); RBC 3.59 10x6/uL (4.00-5.40)
[2018-05-23 07:24] LABS: WBC 12.3 10x3/uL (4.8-10.8)
[2018-05-23 07:29] LABS: ANION GAP 17.3 mmol/L (8-16); CALCIUM 8.5 mg/dL (8.5-10.1); CARBON DIOXIDE 24.1 mmol/L (21.0-32.0); CREATININE - SERUM 6.3 mg/dL (0.6-1.3); PHOSPHOROUS 5.8 mg/dL (2.5-4.9); POTASSIUM - SERUM 4.4 mmol/L (3.5-5.1)
[2018-05-23 07:55] VITALS: BP 119/65
[2018-05-23 12:48] VITALS: BP 139/68
== END 2018-05-23 13:15 | disposition home or self-care (01) | DRG 252 ==
LOC: D.SDCHOLD 11:58 → D.M3 11:58
PROVIDERS: Internal Medicine Nephrology; Surgery
PROC: 3E05317 Introduction of Other Thrombolytic into Peripheral Artery, Percutaneous Approach (ICD-10-PCS; 2018-05-22)
PROC: 5A1D70Z Performance of Urinary Filtration, Intermittent, Less than 6 Hours Per Day (ICD-10-PCS; 2018-05-22)
PROC: 03CY3ZZ Extirpation of Matter from Upper Artery, Percutaneous Approach (ICD-10-PCS; principal; 2018-05-22 08:00)
PROC: 0JH63XZ Insertion of Tunneled Vascular Access Device into Chest Subcutaneous Tissue and Fascia, Percutaneous Approach (ICD-10-PCS; 2018-05-22 08:00)
PROC: 02H633Z Insertion of Infusion Device into Right Atrium, Percutaneous Approach (ICD-10-PCS; 2018-05-22 08:00)
PROC: B2141ZZ Fluoroscopy of Right Heart using Low Osmolar Contrast (ICD-10-PCS; 2018-05-22 08:00)
DX: T82.868A Thrombosis due to vascular prosthetic devices, implants and grafts, initial encounter (principal); N18.6 End stage renal disease; I12.0 Hypertensive chronic kidney disease with stage 5 chronic kidney disease or end stage renal disease; N39.0 Urinary tract infection, site not specified; D68.9 Coagulation defect, unspecified; Y83.8 Other surgical procedures as the cause of abnormal reaction of the patient, or of later complication, without mention of misadventure at the time of the procedure; E11.22 Type 2 diabetes mellitus with diabetic chronic kidney disease; Z99.2 Dependence on renal dialysis; D63.1 Anemia in chronic kidney disease; E83.39 Other disorders of phosphorus metabolism; J06.9 Acute upper respiratory infection, unspecified; Z86.73 Personal history of transient ischemic attack (TIA), and cerebral infarction without residual deficits

== ENCOUNTER 2018-09-03 06:56 | Day surgery (SDC) | payer MEDICARE ==
[~2018-09-03] VITALS: Ht 160 cm; Wt 80.7 kg
--- NOTE | ~2018-09-03 | OP ---
PATIENT NAME: DOC DELACRUZ MEDICAL RECORD: [id number] :65 LOCATION:DCHAYO ADMISSION DATE: SURGEON: LINDA ELLIS MD DATE OF OPERATION: 09/03/2018 She is referred by Dr. Strauss of [place]. DIAGNOSES: End-stage renal disease and dependence on hemodialysis with a thrombosed arteriovenous graft in the left arm and axillary vein stenosis on the left and also a nonfunctional right internal jugular tunneled dialysis catheter. OPERATION PERFORMED: 1. Open revision of left arm AV graft with thrombectomy and balloon angioplasty of the axillary vein, 9[address]70 and 24719. 2. Also replacement of right internal jugular tunneled dialysis catheter through the same venous access, 58032-15. PREOPERATIVE NOTE: Ms. Delacruz is a 52-year-old -[place]ian female from [place]. She has end-stage renal disease and is on chronic hemodialysis. Her dance therapist is Dr. Strauss. She has had several failed accesses in her left upper arm. The present brachial axillary PTFE AV graft has been thrombosed for over 3 months and she has been dependent on the right internal jugular hemodialysis catheter, which I placed back in May. It is now not functioning adequately to continue dialysis. She is brought to the operating room to try to provide access via the arm by revising or replacing the AV graft there and I will also remove and replace her tunneled dialysis catheter. ANESTHESIA: General with LMA per EGG BUYER. SURGEON: Linda Ellis MD DESCRIPTION OF PROCEDURE: Under anesthesia in supine position, the patient was prepped and draped in sterile manner. An axillary incision was made and the previous graft vein anastomosis dissected and the proximal vein controlled with Silastic loop. An incision above the antecubital space was made and the brachial artery exposed and controlled with Silastic loops and I found the graft. The old graft really did not anastomose to the brachial artery at that level, this may have originated as a brachiocephalic AV fistula revised to the graft, I am not certain. At any rate, the artery was prepared for anastomosis. The patient was systemically heparinized. I inserted a micropuncture needle and guidewire into the graft near the venous anastomosis and was able then to pass a guidewire and insert an 6-Polish introducer and used an AngioJet catheter to lyse thrombus within the axillary vein stent. I found that there was severe in-stent stenosis at the proximal end of a long axillary vein series of stents. This was subsequently dilated with angioplasty balloon and angiography demonstrated satisfactory response to that going from essentially 100% occlusion to less than 10% residual stenosis. I then clamped the vein and transected it just above the graft to vein anastomosis. This transection went right through the old stent. Localized thrombectomy was performed and I then took an Artegraft prosthesis which had been rinsed and washed as per the shoe salesman's instructions and this Artegraft was sutured end-to-end to the axillary vein with running 6-0 Prolene. The anastomosis was also treated with BioGlue. The graft and axillary vein was then flushed with heparinized saline. The graft was placed in a rainbow tunnel in the upper arm and brought back to the brachial artery. The artery was occluded with Silastic loops and opened, it was flushed OPERATIVE REPORT [id number] DOC DELACRUZ proximally and distally with heparinized saline and the artery graft shortened and beveled and anastomosed end-to-side to the brachial artery with running 6-0 Prolene, and when that was completed and the occluding loops and clamps were released, flow developed in the fistula, but it was not satisfactory. I inserted another micropuncture needle then into the new segment of Artegraft near the brachial artery anastomosis and performed a fistulogram, which demonstrated irregularity and stenosis in the axillary vein at the new anastomosis and within the stent just proximal to that. I then stented that with an 8 x 5 Viabahn stent, which was fully expanded with the angioplasty balloon. At this point, excellent flow developed in the fistula as this demonstrated with a repeat angiogram. The introducer sheath was removed from the Artegraft and that site closed with running 6-0 Prolene. The wounds were irrigated with Ancef/gentamicin solution and infiltrated and irrigated with 0.25% Marcaine without epinephrine. Wound closure was achieved without the use of a drain with interrupted inverted 3-0 Vicryl and running intracuticular 4-0 Monocryl and Dermabond glue. The sites were dressed with Maxorb Ag, Tegaderm, and Cavilon skin prep. At this point, there was excellent flow in the graft by a handheld continuous wave Doppler and in the radial artery at the wrist as well. The patient was then reprepped and redraped and the existing tunneled dialysis catheter was bluntly dissected through the exit site, freeing up the Dacron felt cuff. There was a small amount of purulent material present at the exit site and this was swabbed for aerobic and anaerobic culture and sensitivity and Gram stain, the result of which is of course pending as I dictate. I passed an angled Roadrunner wire through the venous limb and down the inferior vena cava under fluoroscopy. I then backed out the old catheter and then injected contrast through the arterial limb performing the superior vena cavogram, which revealed no fibrin sheath or obstruction or stenosis. The old catheter was then completely removed and the tip sent for culture and a new 19-cm HemoSplit catheter was inserted over the wire and through the same tunnel and venous access. The tip reached much further down and actually into the inferior vena cava. I think this is better positioning than she had had previously where the catheter was actually impinging on the tricuspid valve. Both lumens were accessed and aspirated, free return of blood was confirmed from each. They were then flushed with saline and then heparin locked, clamped and capped. The catheter was sutured to the skin with 2-0 Prolene and sterile dressing was applied. She was awakened and taken to the recovery room. Blood loss during the operation was probably 100 cc. None was replaced intraoperatively. All sponges, instruments and needles were accounted for. No drain was used and no surgical specimen was submitted for histopathology. The old HemoSplit catheter tip was sent for culture only and of course swabs were sent for culture. I am going to go ahead and give Ms. Delacruz 5 mg Eliquis p.o. today and she will continue on her home dose of Eliquis in the morning, 5 mg p.o. b.i.d. She will return to see me in my office probably Thursday. She can leave the original operative dressings intact until that time or if they need to be changed if they are bloody or wet or dirty, they of course can be removed and the wounds then should be kept covered with clean, dry gauze. 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 OPERATIVE REPORT [id number] RACHDOC I will probably have her dialysis unit in [place] begin dialyzing her with her new AV graft in 2 weeks and if it functions well shortly after that, she can return to [facility] for a fistulogram and also then if that is satisfactory to have her TDC removed. TRANSINT:[id number] Voice Confirmation ID: [id number] DOCUMENT ID: [id number] cc: [facility] [phone] LINDA ELLIS MD CC: SUHA STRAUSS MD and [facility] [id number] DICTATION DATE: 09/03/181747 AMPHIBIOUS OPERATIONS OFFICER: 09/04/[address] [facility] 09/03/18 [facility] [address] [place] [address]
[2018-09-03 07:28] LABS: ANION GAP 17.6 mmol/L (8-16); CALCIUM 9.7 mg/dL (8.5-10.1); CARBON DIOXIDE 21.6 mmol/L (21.0-32.0); CREATININE - SERUM 5.6 mg/dL (0.6-1.3); POTASSIUM - SERUM 5.2 mmol/L (3.5-5.1)
[2018-09-03 07:31] LABS: INR 1.02 (0.85-1.17); PROTIME 12.9 SECONDS (11.6-15.0)
[2018-09-03 07:52] LABS: BASOPHILS 0.1 % (0-2); EOSINOPHILS 0 % (0-7); HEMATOCRIT 32.2 % (36.0-48.0); HEMOGLOBIN 10.7 g/dL (12-16); IMMATURE GRANULOCYTES 0.2 % (0-5); LYMPHOCYTES 16.6 % (15-50); MCH 27.7 pg (26.0-34.0); MCHC 33.2 g/dL (31.0-37.0); MCV 83.4 fL (80.0-100.0); MEAN PLATELET VOLUME 9.9 fL (7.4-10.4); MONOCYTES 0.9 % (2-11); NEUTROPHILS 82.2 % (40-80); PLATELET COUNT 222 10x3/uL (130-400); RBC 3.86 10x6/uL (4.00-5.40); RDW 13.6 % (11.5-14.5); WBC 8.6 10x3/uL (4.8-10.8)
[2018-09-03 08:53] VITALS: Ht 160 cm; Wt 80.7 kg
[2018-09-03] MEDS ORDERED: HYDROCODON-ACE1 EAC7 PO (14:44)
--- NOTE | 2018-09-03 17:15 | NUR ---
PATIENT AMBULATING AROUND ROOM WITH FAMILY PROVIDING STAND-BY ASSIST. PATIENT DRESSED IN PERSONAL CLOTHING. DISCHARGE INSTRUCTIONS REVIEWED WITH PATIENT AND FAMILY. DISCHARGED HOME VIA WHEELCHAIR TO PRIVATE VEHICLE WITH FAMILY
== END 2018-09-03 17:15 | disposition home or self-care (01) ==
LOC: D.OPS 06:56
PROVIDERS: Surgery; ATTEND Internal Medicine Nephrology
DX: T82.868A Thrombosis due to vascular prosthetic devices, implants and grafts, initial encounter (principal); I87.1 Compression of vein; T82.49XA Other complication of vascular dialysis catheter, initial encounter; N18.6 End stage renal disease; Z99.2 Dependence on renal dialysis; D68.59 Other primary thrombophilia; Z01.812 Encounter for preprocedural laboratory examination